=== PATIENT | female | born 1950 | race Caucasian/White ===

== ENCOUNTER 2020-01-24 07:09 | Outpatient (CLI) | payer MEDICARE | END 2020-01-24 07:10 | disposition home or self-care (01) | LOC: LABBT 07:09 | PROVIDERS: ATTEND Internal Medicine Cardiovascular Disease | DX: Z01.810 Encounter for preprocedural cardiovascular examination (principal); I48.91 Unspecified atrial fibrillation | CPT/HCPCS: 93005; 93010 ==

== ENCOUNTER 2020-01-28 06:57 | Observation (INO) | payer MEDICARE ==
[2020-01-28] MEDS ORDERED: PHENYLEPHRINE-NS 100 MCG/ML 10 ML SYRINGE ONE (09:33)
[2020-01-28] MEDS ORDERED: Ondansetron PF 4 MG/2 ML Vial ONE (09:33)
[2020-01-28] MEDS ORDERED: Lidocaine 1% PF 5 ML VIAL ONE (09:33)
[2020-01-28] MEDS ORDERED: PROPOFOL 200 MG/20 ML VIAL ONE (09:33)
[2020-01-28] MEDS ORDERED: Rocuronium Bromide 10 MG/ML (10ML VIAL) ONE (09:33)
[2020-01-28] MEDS ORDERED: Heparin 10,000 UNITS/ 10 ML VIAL ONE (12:59)
[2020-01-28] MEDS ORDERED: Heparin 25,000 units/D5W 500 ML ONE (12:59)
[2020-01-28] MEDS ORDERED: Isoproterenol 0.2 MG/1 ML AMP ONE (14:32)
[2020-01-28] MEDS ORDERED: Protamine Sulfate 50 MG/5 ML VIAL ONE (14:49)
[2020-01-28] MEDS ORDERED: Promethazine HCl 25 MG/ML VIAL SLOW IVP PRN (15:24)
[2020-01-28] MEDS ORDERED: Promethazine HCl 25 MG/ML VIAL IM PRN (15:24)
[2020-01-28] MEDS ORDERED: Ondansetron HCl/PF 4 MG/2 ML Vial IVP PRN (15:24)
[2020-01-28] MEDS ORDERED: Fentanyl 100 MCG/2 ML VIAL ONE (16:26)
--- NOTE | 2020-01-28 19:32 | OP ---
DATE OF PROCEDURE: 01/28/2020 PROCEDURES PERFORMED: Electrophysiology study and radiofrequency ablation. REASON FOR PROCEDURE: Ms. Juan is a pleasant 69-year-old woman with prior history of paroxysmal atrial fibrillation, suboptimally suppressed with flecainide. She is here for EP study and ablation procedure. She has been well anticoagulated with oral anticoagulant without a fail. DESCRIPTION OF PROCEDURE: The patient received general anesthesia by anesthesia specialist. Left and right femoral venous area were prepped, draped, and accessed with a multipurpose needle. On the left side, an 11-Zambian and an 8-Zambian sheath were used to advance an intracardiac echocardiogram probe and a DecaNav catheter in the right atrium. The intracardiac probe was used to monitor the transeptal procedure, the catheter manipulation, and pericardial space throughout the procedure. A DecaNav catheter was used to perform 3D map of the right atrium, His bundle, RV, and eventually CS position. Pacing, mapping, and recording were performed at each location including pacing the left atrium via the CS. During the case also, LV pacing was performed by advancing the ablation catheter in LV to rule out accessory pathway. Following baseline findings were noted, baseline rhythm was sinus rhythm with positive catheter manipulations sustained atrial flutter recurred, which appears to be left atrial rising from a posterior wall location. The sinus cycle length was 757 milliseconds, VT 187 milliseconds, QRS 88 milliseconds, QT 704 milliseconds, AH was milliseconds, and HV was 37 milliseconds. After the ablation, VA timing was checked and was noted at 510 milliseconds on Isuprel and antegrade Wenckebach cycle length was 210 milliseconds. Atrial extrastimuli testing was performed with no evidence of dual AV kenneth physiology, but still inducible atrial flutter in the end of the case, though which was pace terminated. IV heparin was administered in this point and the transseptal puncture was performed with 2 SL0 sheaths with the help of a powered [place] needle under ultrasound and fluoroscopic guidance. Through the SL0 sheaths, a ThermoCool SFST and a 20-pole Lasso catheter advanced to the left atrium. 3D map of the left atrium was obtained. A common left pulmonary vein and two separate right-sided pulmonary veins were noted. Left atrium was mildly enlarged only and mild scarring was seen in the left atrium. Standard pulmonary venous isolation procedure was performed isolating the left common and the right superior and right inferior veins. The posterior wall was also isolated with a roof line and inferior line. During the posterior wall lehman, careful attention was paid to the esophageal temperature probe to avoid excessive heating and high-flow irrigation was also performed at the posterior wall ablations, which were adjacent to the esophagus. The easily inducible atrial flutter was noninducible at the end of the ablation. Burst atrial pacing and extrastimuli testing still induce an atypical atrial flutter, though which pace terminated on attempt to entrain it. Isuprel was also administered and any reconnections re-ablated. The ablation catheter was advanced to the LV for checking for retrograde AV block and Wenckebach cycle length and rule out accessory pathway. At this point, the IV heparin was stopped. Isuprel was also stopped and the catheter was withdrawn back from the left atrium. The intracardiac echocardiogram probe showed no change in the pericardial space, and also fluoroscopy showed no changes in the cardiac silhouette. The long sheaths were exchanged for short sheaths and Vascade closure was performed in all four femoral venous access sites. A total of 78 ablation lesions were placed at 40 arnold. RF time total was 25 minutes and 14 seconds. CONCLUSION: 1. Easily inducible atypical atrial flutter and atrial fibrillation, both seen. 2. 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 3. Mild left atrial enlargement with mild scarring is seen. 4. Successful isolation of the left common and the right superior and inferior pulmonary veins as well as the posterior wall performed. 5. Inducible atrial flutter in the end of the case, which was pace terminated. 6. No evidence of accessory pathway. Normal His-Purkinje function pre and post procedure is seen. PLAN: Resume oral anticoagulation and monitor for recurrent arrhythmias. Hold flecainide. Job ID: [id number] [facility]
[2020-01-28] MEDS ORDERED: Ketorolac Tromethamine 30 MG/ML VIAL IVP PRN (20:47)
[2020-01-28] MEDS ORDERED: Atorvastatin Calcium 20 MG TAB PO SCH (21:00)
[2020-01-28] MEDS ORDERED: Amlodipine 5 MG TAB PO SCH (21:00)
[2020-01-28] MEDS ORDERED: Acetaminophen/Codeine 30-300mg Tablet PO PRN ×2 (21:00)
[2020-01-28] MEDS ORDERED: Oxybutynin 5 MG TAB PO SCH (21:00)
[2020-01-28] MEDS: Calcium Carbonate 600 MG + Vit D TAB PO SCH (22:26)
[2020-01-28 23:20] VITALS: BMI 24.3
[2020-01-29] MEDS: Sucralfate 1 GM TAB PO SCH ×3 (00:12→12:41)
[2020-01-29 04:51] LABS: Hemoglobin 11.4 g/dL (12.0-16.0); Platelet Count 237 thou/uL (130-400)
[2020-01-29] MEDS: Calcium Carbonate 600 MG + Vit D TAB PO SCH (08:59)
[2020-01-29] MEDS ORDERED: Multivitamin W/ Minerals 1 TAB PO SCH (09:00)
[2020-01-29] MEDS ORDERED: Stress 600 With Zinc 1 TAB PO SCH (09:00)
[2020-01-29] MEDS ORDERED: Apixaban 5 MG TAB PO SCH (09:00)
[2020-01-29] MEDS ORDERED: Ramipril 5 MG CAP PO SCH (09:00)
[2020-01-29 13:46] VITALS: BP 117/71; TEMP 97.5
--- NOTE | 2020-01-30 13:04 | DIS ---
DATE OF ADMISSION: 01/28/2020 DATE OF DISCHARGE: 01/29/2020 DIAGNOSIS: Paroxysmal atrial fibrillation. PROCEDURES PERFORMED: Include electrophysiology study and radiofrequency ablation, total ablation time 25 minutes and 14 seconds, 78 ablation lesions placed at 40 arnold. Inducible for atypical atrial flutter and atrial fibrillation, status post isolation of left common pulmonary vein and two right-sided pulmonary veins as well as posterior wall isolation. Noninducible post ablation with no complications. Vascade closure at four femoral venous access sites. HISTORY OF PRESENT ILLNESS: Ms. Juan is a pleasant 69-year-old woman with paroxysmal atrial fibrillation, suboptimally suppressed with low-dose flecainide. She was taken to the EP lab for an elective study and left atrial ablation as detailed above. She has done well overnight with no early recurrent atrial arrhythmias, palpitations, or postoperative complications. She feels well and is eager to go home. SUBJECTIVE: The patient denies any ongoing complaints postablation. She has no shortness of breath, palpitations, chest pain, fluid retention, difficulty voiding, or pain/bleeding concern at the groin site. OBJECTIVE: VITAL SIGNS: Stable. Heart rates are steady with no atrial arrhythmias documented postablation. Bilateral groin sites are stable. Hepatojugular reflux is negative. NECK: There is no jugular venous distention. LUNGS: Clear to auscultation. GENERAL: She has no apparent distress. NEUROLOGIC: Grossly intact and nonfocal. Gait is steady without assist. DIAGNOSTIC STUDIES: Telemetry and EKG showed sinus rhythm. DISCHARGE MEDICATIONS: Include; 1. bedtime. 2. Vitamin B daily. 3. Ramipril daily. 4. Ditropan q.p.m. 5. Calcium with vitamin D b.i.d. 6. Eliquis 5 mg b.i.d. 7. Zocor at bedtime. 8. Metoprolol succinate 25 mg daily. 9. Multivitamin daily. New prescriptions; 1. Carafate 1 g p.o. q.6 hours x2 weeks. 2. Protonix 40 mg daily x2 weeks. Discontinued medication, flecainide. DISCHARGE PLANNING AND RECOMMENDATIONS: Light duty for 1 week with no heavy lifting. No driving for 3 days or until bilateral groin sites are well healed, nontender. Contact [facility] with any postablation concerns. Continue Eliquis unless she experienced severe bleeding. CONDITION AT DISCHARGE: Stable. Job ID: [id number]
== END 2020-01-29 14:05 | disposition home or self-care (01) ==
LOC: CCL 06:57 → 2NO 07:56
PROVIDERS: ADMIT Internal Medicine Cardiovascular Disease; ATTEND Internal Medicine Cardiovascular Disease
PROC: 4A023FZ Measurement of Cardiac Rhythm, Percutaneous Approach (ICD-10-PCS; principal; 2020-01-28)
PROC: 4A0234Z Measurement of Cardiac Electrical Activity, Percutaneous Approach (ICD-10-PCS; 2020-01-28)
PROC: 02583ZZ Destruction of Conduction Mechanism, Percutaneous Approach (ICD-10-PCS; 2020-01-28)
PROC: 02K83ZZ Map Conduction Mechanism, Percutaneous Approach (ICD-10-PCS; 2020-01-28)
DX: I48.0 Paroxysmal atrial fibrillation (principal); I10 Essential (primary) hypertension; E78.5 Hyperlipidemia, unspecified; Z79.01 Long term (current) use of anticoagulants; Z79.899 Other long term (current) drug therapy; Z88.2 Allergy status to sulfonamides
CPT/HCPCS: 76942; 82565; 85014; 85018; 85049; 85347 ×2; 93005 ×2; 93613; 93622; 93623; 93656; 93657; 93662; C1732 ×3; C1759; 36415; 93010; G0378; J1644; J2405; J2704; J2720; J3010

== ENCOUNTER 2020-10-06 17:10 | Outpatient (CLI) | payer MEDICARE ==
[2020-10-06 18:29] LABS: Hemoglobin 12.3 g/dL (12.0-15.5); Mean Corpuscular HGB CONC 33.1 g/dL (32.0-36.0); Mean Corpuscular Hemoglobin 31.4 pg (27.0-33.0); Mean Corpuscular Volume 94.9 fl (81.6-98.3); Mean Platelet Volume 9.6 fl (7.4-10.4); Platelet Count 289 10x3/uL (150-450); RBC Distribution Width 12.6 % (11.5-14.5); Red Blood Cell (RBC) Count 3.92 10x6/uL (3.90-5.03); White Blood Cell (WBC) Count 6.9 10x3/uL (3.5-10.5)
[2020-10-06 18:31] LABS: INR-International Normal Ratio 0.9; PTT 25.7 sec (22.0-33.0); Prothrombin Time 10.2 sec (9.5-12.1)
[2020-10-06 18:38] LABS: Anion Gap 13 mmol/L (10-20); BUN (Urea Nitrogen) 15 mg/dL (9.8-20.1); Calc. Creatinine Clearance 0 mL/min (70-130); Calcium 9.9 mg/dL (7.8-10.44); Carbon Dioxide 26 mmol/L (23-31); Chloride 107 mmol/L (98-107); Glucose 99 mg/dL (83-110); Potassium 4.1 mmol/L (3.5-5.1); Sodium 142 mmol/L (136-145)
[2020-10-07 07:49] LABS: SARS-CoV-2 PCR by NAA Not Detected (NotDetected)
== END 2020-10-06 17:11 | disposition home or self-care (01) ==
LOC: LABBT 17:10
PROVIDERS: ATTEND Internal Medicine Cardiovascular Disease
DX: Z01.812 Encounter for preprocedural laboratory examination (principal); Z20.822 Contact with and (suspected) exposure to COVID-19
CPT/HCPCS: 80048; 85027; 85610; 85730; U0003; U0005

== ENCOUNTER 2020-10-08 06:08 | Observation (INO) | payer MEDICARE ==
[2020-10-07 10:20] VITALS: BMI 22.8
[2020-10-08] MEDS ORDERED: Heparin 25,000 units/D5W 500 ML ONE (06:31)
[2020-10-08] MEDS ORDERED: Heparin 10,000 UNITS/ 10 ML VIAL ONE (06:31)
[2020-10-08] MEDS ORDERED: Midazolam HCl 2 mg/2 ml Vial ONE (07:23)
[2020-10-08] MEDS ORDERED: Fentanyl 100 MCG/2 ML VIAL ONE ×2 (07:23→10:52)
[2020-10-08] MEDS ORDERED: ePHEDrine 50 MG/ML VIAL ONE (07:27)
[2020-10-08] MEDS ORDERED: Dexamethasone 20 MG/5 ML VIAL ONE (07:27)
[2020-10-08] MEDS ORDERED: Rocuronium Bromide 10 MG/ML (10ML VIAL) ONE (07:27)
[2020-10-08] MEDS ORDERED: PROPOFOL 200 MG/20 ML VIAL ONE (07:27)
[2020-10-08] MEDS ORDERED: Ondansetron PF 4 MG/2 ML Vial ONE ×2 (07:27→19:47)
[2020-10-08] MEDS ORDERED: Lidocaine 1% PF 5 ML VIAL ONE (07:27)
[2020-10-08] MEDS ORDERED: Isoproterenol 0.2 MG/1 ML AMP ONE (07:44)
[2020-10-08] MEDS ORDERED: Famotidine/PF 20 mg/2ml Vial ONE (07:45)
[2020-10-08] MEDS ORDERED: Protamine Sulfate 50 MG/5 ML VIAL ONE (10:34)
[2020-10-08] MEDS ORDERED: Amiodarone 150 MG/3 ML VIAL ONE (11:32)
[2020-10-08] MEDS ORDERED: Ketorolac Tromethamine 30 MG/ML VIAL IVP PRN ×2 (12:32→14:24)
[2020-10-08] MEDS ORDERED: Furosemide 40 MG TAB PO PRN (12:32)
[2020-10-08] MEDS ORDERED: Potassium Chloride 20 MEQ TAB PO PRN (12:32)
[2020-10-08] MEDS ORDERED: Albumin 5% 500 ML ONE (13:26)
[2020-10-08] MEDS ORDERED: Acetaminophen/Codeine 30-300mg Tablet PO PRN ×2 (14:30)
[2020-10-08] MEDS ORDERED: Ondansetron PF 4 MG/2 ML Vial IVP SCH (20:15)
[2020-10-08] MEDS ORDERED: Acetaminophen/Codeine 30-300mg Tablet ONE (20:40)
[2020-10-08] MEDS: Sucralfate 1 GM TAB PO SCH (20:47)
[2020-10-08 20:48] VITALS: BP 119/62
[2020-10-08] MEDS: Calcium Carbonate 600 MG + Vit D TAB PO SCH (20:48)
[2020-10-08] MEDS: Apixaban 5 MG TAB PO SCH (20:48)
[2020-10-08] MEDS ORDERED: Atorvastatin Calcium 20 MG TAB PO SCH (21:00)
[2020-10-08] MEDS ORDERED: Amlodipine 5 MG TAB PO SCH (21:00)
[2020-10-09] MEDS ORDERED: Sucralfate 1 GM TAB ONE (07:20)
[2020-10-09] MEDS: Sucralfate 1 GM TAB PO SCH (07:21)
[2020-10-09] MEDS ORDERED: Multivitamin W/ Minerals 1 TAB PO SCH (09:00)
[2020-10-09] MEDS ORDERED: Stress 600 With Zinc 1 TAB PO SCH (09:00)
[2020-10-09] MEDS ORDERED: Ramipril 5 MG CAP PO SCH (09:00)
[2020-10-09] MEDS: Apixaban 5 MG TAB PO SCH (09:09)
[2020-10-09] MEDS: Calcium Carbonate 600 MG + Vit D TAB PO SCH (09:13)
== END 2020-10-09 10:34 | disposition home or self-care (01) ==
LOC: CCL 06:08 → SURG A 12:42 → PACU-TCU 10-09 00:29
PROVIDERS: ADMIT Internal Medicine Cardiovascular Disease; ATTEND Internal Medicine Cardiovascular Disease
PROC: 02583ZZ Destruction of Conduction Mechanism, Percutaneous Approach (ICD-10-PCS; principal; 2020-10-08)
PROC: 02K83ZZ Map Conduction Mechanism, Percutaneous Approach (ICD-10-PCS; 2020-10-08)
PROC: 4A023FZ Measurement of Cardiac Rhythm, Percutaneous Approach (ICD-10-PCS; 2020-10-08)
PROC: 4A0234Z Measurement of Cardiac Electrical Activity, Percutaneous Approach (ICD-10-PCS; 2020-10-08)
PROC: B244ZZZ Ultrasonography of Right Heart (ICD-10-PCS; 2020-10-08)
PROC: B24CZZZ Ultrasonography of Pericardium (ICD-10-PCS; 2020-10-08)
DX: I48.0 Paroxysmal atrial fibrillation (principal); I48.4 Atypical atrial flutter; I10 Essential (primary) hypertension; E78.5 Hyperlipidemia, unspecified; I08.1 Rheumatic disorders of both mitral and tricuspid valves; Z85.820 Personal history of malignant melanoma of skin; Z79.01 Long term (current) use of anticoagulants; Z79.899 Other long term (current) drug therapy; Z88.2 Allergy status to sulfonamides; Z98.890 Other specified postprocedural states
CPT/HCPCS: 71045; 76942; 85347 ×2; 92960; 93005; 93613; 93622; 93623; 93655; 93656; 93657; 93662; C1732 ×2; C1759; C1884; P9045; 96374; G0378; J0282; J1100; J1644; J2250; J2405; J2704; J2720; J3010; J3490; S0028